=== PATIENT | male | born 1970 | race Caucasian/White ===

== ENCOUNTER 2017-03-06 15:06 | Emergency (ER) | payer OTHER, BC ==
[~2017-03-06] VITALS: Ht 170.2 cm; Wt 76.2 kg
[2017-03-06] MEDS ORDERED: ACETAMINOPHEN 325 MG TAB PO ONE (15:45)
[2017-03-06] MEDS ORDERED: CYCLOPENTOLATE 1% OPHTH SOLN 2 ML BTL OD ONE (16:00)
--- NOTE | 2017-03-06 16:14 | REP ---
CT BRAIN WITHOUT CONTRAST: 03/06/2017. Clinical history: Head and orbital trauma. Findings: Noncontrast image performed with no prior study. Ventricles midline, symmetric and without dilatation or displacement. Basal ganglia symmetric and normal. Bray/white junction differentiation well maintained. The cortical stripe is preserved. There is no vascular territory infarct, hemorrhage, mass, mass effect or edema. No petechial hemorrhage. No extra-axial fluid collection. Brainstem and cerebellum grossly intact. Basal cisterns intact. Visualized mastoids and sinuses were clear. Skull base and calvarium show no fracture or focal lesion. Impression: 1. Normal noncontrast CT brain. No intracranial hemorrhage, edema, mass, white matter tract abnormality or focal lesion. 2. Skull base, calvarium, visualized sinuses and mastoids clear. Signed by Vince Casas MD 03/06/2017 05:26 P
--- NOTE | 2017-03-06 16:19 | REP ---
CT ORBITS WITHOUT CONTRAST: 02/24/2017: Clinical history: Trauma, attention right orbit. Technique: Axial bone and soft tissue windows with coronal and sagittal reconstructions provided. The bilateral orbital floors are intact lateral orbital struts, zygomatic arches, medial llanos of the orbits and orbital floors were all intact. The mucosal thickening circumferentially in both maxillary sinuses. Scattered ethmoid sinus mucosal thickening noted with a few areas of sphenoid sinuses as well. Frontal sinuses were clear however. The ostiomeatal complexes show occlusion of the OMCs bilaterally with infundibular and ostial stenosis. Deviation of the septum towards the right side is seen. The globes, optic nerves and extraocular muscles intact. There is soft tissue swelling of the infraorbital ridge and malar region on the right but not the left. There is swelling over the bridge of the nose of the right side. No fractures of the nasal bones noted. Impression: 1. Infraorbital and malar soft tissue swelling on the right without fractures of the orbital floor or maxillary sinus llanos. 2. Bilateral bony orbits, globes, optic nerves, extraocular muscles and other intraorbital contents symmetric and normal. 3. Deviation of the nasal septum towards the right with scattered areas of mucosal thickening ethmoid air cells and circumferential mucosal thickening in the maxillary sinuses with occlusion of the ostiomeatal complexes by a mucosal thickening. 4. No other significant finding. Mastoids intact. Signed by Vince Casas MD 03/06/2017 05:26 P
[2017-03-06] MEDS ORDERED: prednisoLONE ACET 1% OPHTH SUSP 5ML OD SCH (17:00)
[2017-03-06 18:17] VITALS: BP 142/88
== END 2017-03-06 18:19 | disposition home or self-care (01) ==
LOC: M ED 15:48
DX: S05.11XA Contusion of eyeball and orbital tissues, right eye, initial encounter (principal); W22.8XXA Striking against or struck by other objects, initial encounter; Y92.89 Other specified places as the place of occurrence of the external cause; Y93.89 Activity, other specified; Y99.0 Civilian activity done for income or pay

== ENCOUNTER 2017-03-07 11:32 | Emergency (ER) | payer OTHER, BC ==
[~2017-03-07] VITALS: Ht 170.2 cm; Wt 76.2 kg
[2017-03-07 11:33] VITALS: BP 118/77
--- NOTE | 2017-03-07 22:23 | ER ---
DATE OF CONSULTATION: 03/07/2017 CHIEF COMPLAINT: Right eye pain. 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 During that time he dropped the wrench and it hit him in the right upper face. The patient noted right- sided facial pain and decreased vision at the time and presented to the emergency department for evaluation. The patient was found to have decreased vision and a right hyphema and an ophthalmology consultation was requested. The patient notes some right-sided facial pain and some swelling on the right side of the face. He denies any loss of consciousness or loss of vision at the time. A CT scan of the head and orbits was performed and no orbital fracture or orbital hemorrhage was found. PAST MEDICAL HISTORY: Denies. PAST OCULAR HISTORY: Reading glasses, denies ocular surgery or drops ALLERGIES: None. MEDICATIONS: None. EXAMINATION: Uncorrected visual acuity is 20/50 in right eye, 20/30 in the left eye. Intraocular pressures by Andrew-Pen was 17 in the right eye, 9 in the left eye. Extraocular muscles were full with no gaze restriction both eyes (OU). There is some right pupil dilation and anisocoria on examination but no afferent pupillary defect (APD) was found. There is some sluggishness of the right pupil with light stimulus. Confrontation of visual metz are full. Slit-lamp examination revealed some right maxillary and upper face edema with ecchymosis and eyelid ptosis secondary to eyelid edema. Left eye is normal. Patient has a superior and inferior conjunctival hemorrhage with no laceration. There is some tenderness over the inferior orbital rim. Cornea is clear OU. The anterior chamber showed 3+ cell and there is an inferior layered hyphema in the right anterior chamber that shows slight endothelial pigmentation. It is somewhat difficult to examine the lens status at this time and there is no view of the posterior segment. The dilated fundus examination was deferred at this time due to poor view in the right eye. ASSESSMENT AND PLAN: This is a 47-year-old male status post right orbital trauma with a wrench while at work. 1. Right hyphema. 2. Eyelid edema. 3. Corneal haze. 4. Subconjunctival hemorrhage. PLAN: Given the intraocular pressure is relatively normal in the right eye of 17 and there is no corneal perforation or orbital fracture, the patient will start corticosteroids and cycloplegics on this patient to minimize the inflammation and prevent anterior synechiae from forming. It is somewhat difficult to rule out lens capsule violation at this time due to the significant hemorrhage in the anterior chamber and layered hyphema. There is no evidence of iris neovascularization but the view is slightly obscured. Plan: 1. Pred Forte four times a day to the right eye 2. Cyclogyl three times a day 3. Tylenol only as needed for pain. 4. Avoid Motrin, aspirin, or ibuprofen type medications as this can increase the risk of bleeding 5. Elevate the head of the bed to 45 degrees while resting and avoid laying in the supine position at all times. 6. FU 1 day in ER for re-examination to check visual acuity, assess hyphema and IOP I discussed with patient and his supersvisor in detail that the first few days are the most critical with these injuries as they can result in rebleeds which would require the need for possible surgical intervention. The patient agreed to the plan and was told to call as soon as possible if there is any change in symptoms. AMAURY
--- NOTE | 2017-03-07 22:54 | ER ---
DATE OF ER CONSULTATION: 03/07/2017 Time: 12:30 p.m. The patient was seen and examined at the bedside. His was in the room at the time. The patient notes significant improvement of symptoms with less pain and improvement of vision since I examined him yesterday. He did start the recommended eye drops and is using Tylenol at this time for discomfort. Uncorrected visual acuity: 20/30 in the right eye, 20/30+2 in the left eye. Intraocular pressure was 19 and 17. Extraocular muscles were full, OU. There is no afferent pupillary defect (APD). Confrontation visual metz are full. Slit lamp examination revealed a clearing inferior hyphema less than one-third and improvement of the pigmented speck of appearance of the hemorrhage that was of the heme on the corneal epithelium. The lid, lashes and adnexa there is less soft tissue swelling. There is still mild ecchymosis and a subconjunctival hemorrhage. The lens capsule appears intact. An undilated 90 diopter examination was performed as the patient is cyclopleged. A hazy view, but cup-to-disc ratio was 0.25 with a sharp, pink, flat disc and the remaining retina appeared normal with no evidence of a retinal detachment at this time. A/P: Given the improvement in the patient's status and improvement of symptoms and hyphema on examination, we will continue with the current treatment at this time. Will see the patient again in one day to recheck the eye pressure and vision and possibly perform a B-scan ultrasonography to determine any change in posterior segment status. The patient is told to call as soon as possible if there is any change in his symptoms. AMAURY
== END 2017-03-07 13:10 | disposition home or self-care (01) ==
LOC: M ED 12:02
DX: Z04.8 Encounter for examination and observation for other specified reasons (principal); H21.01 Hyphema, right eye; H11.30 Conjunctival hemorrhage, unspecified eye; F17.210 Nicotine dependence, cigarettes, uncomplicated

== ENCOUNTER 2017-03-14 12:07 | Emergency (ER) | payer OTHER, BC ==
[~2017-03-14] VITALS: Ht 170.2 cm; Wt 76.2 kg
[2017-03-14] MEDS ORDERED: PRED1SUS OD (12:14)
[2017-03-14] MEDS ORDERED: CYCL1SOL17 OD (12:14)
[2017-03-14 15:16] VITALS: BP 128/86
--- NOTE | 2017-03-21 12:55 | CR ---
DATE OF CONSULTATION: 03/14/2017 The patient was seen and examined at the bedside in the emergency department. The patient's was in the examining room at the time. The patient notes significant improvement in symptoms with no pain at this time and states that his visual acuity is back to his "baseline." He is still on the recommended eye drops and is using ice packs as needed for comfort. Ocular medications: Prednisolone acetate four times a day to the right eye and Cyclogyl three times a day to the right eye Exam: Uncorrected visual acuity is 20/25 in the right eye, 20/30 in the left eye. Intraocular pressures were 14 in the right eye by Andrew-Pen and 15 by Andrew-Pen in the left eye. Extraocular motions were full bilaterally with no entrapment. There was no afferent pupillary defect (APD) to confrontation. Visual metz: full to count fingers OU Slit lamp examination revealed a trace inferior hyphema in the right eye. There is no endothelial pigmentation at this time. Lids, lashes, and adnexa are with minimal soft tissue swelling. There is a mild subconjunctival hemorrhage. Lens is clear OU, and the capsule is intact. Dilated examination of the right eye, revealed a mildly hazy view but a sharp cup-to-disc ratio 0.25 with pink flat margins. The remaining retina appeared flat with no brakes, tears, or rhegmatogenous pathology. The periphery is within normal limits with no hemorrhage or elevations. ASSESSMENT AND PLAN: Given the improvement in the patient's status, I recommended a tapering dose of the prednisolone four times a day for initial week, three times a day for a week, two times a day for a week, and then one time daily for another week. The patient was recommended to stop the Cyclogyl at this time. He can continue with Tylenol and ice packs as needed for the mild discomfort and periorbital swelling. The patient is recommended to followup with an eye child care worker in 1 month, and arrangements will be made. The patient was told to return to the emergency room (ER) if any changes in symptoms, such as worsening vision, eye pain, etc. MTDD
== END 2017-03-14 15:17 | disposition home or self-care (01) ==
LOC: M ED 13:11
DX: S05.11XD Contusion of eyeball and orbital tissues, right eye, subsequent encounter (principal); W22.8XXD Striking against or struck by other objects, subsequent encounter; Y92.019 Unspecified place in single-family (private) house as the place of occurrence of the external cause; Y93.89 Activity, other specified; Y99.8 Other external cause status; Z79.899 Other long term (current) drug therapy